=== PATIENT | male | born 1970 | race Hispanic/Latino ===

== ENCOUNTER 2018-04-18 16:47 | Emergency (ER) | payer SELFPAY ==
--- NOTE | 2018-04-18 18:26 | ED PDOC ---
Arrival/HPI - General Chief Complaint: Abnormal Skin Integrity Time Seen by Provider: 04/18/18 16:53 Historian: Patient - History of Present Illness Narrative History of Present Illness (Text): 04/18/18 18:30 47yr old male presents today with concerns for tick bite. Patient states he was walking underneath a tree earlier today and then later noticed that he had a lump underneath the right arm and he thought it was a tick. Patient states he's had many ticks on the skin in the past when he was a child and he was concerned that it may be it sick patient presents to the emergency room to be evaluated for possible tick bite since he is unable to visualize what he is feeling under the right axilla. Patient denies pain denies fevers or chills. No other complaints Time/Duration: Prior to Arrival Symptom Course: Unchanged Past Medical History - Provider Review Nursing Documentation Reviewed: Yes - Travel History Have you recently traveled outside [place] w/in the past 3 mons?: No - Tetanus Immunization Tetanus Immunization: Unknown - Psychiatric Hx Substance Use: No Family/Social History - Physician Review Nursing Documentation Reviewed: Yes Family/Social History: Unknown Family HX Smoking Status: Never Smoked Hx Alcohol Use: Yes Frequency of alcohol use: Socially Hx Substance Use: No Allergies/Home Meds Allergies/Adverse Reactions: Allergies No Known Allergies Allergy (Verified 04/18/18 18:16) Home Medications: Home Meds Medication Instructions Recorded Confirmed No Known Home Med 04/18/18 04/18/18 Review of Systems - Review of Systems Constitutional: absent: Fatigue, Fevers Respiratory: absent: SOB, Cough Cardiovascular: absent: Chest Pain, Palpitations Gastrointestinal: absent: Abdominal Pain, Vomiting Musculoskeletal: absent: Arthralgias Skin: Skin Lesions Neurological: absent: Headache Physical Exam Vital Signs Reviewed: Yes Temperature: Afebrile Blood Pressure: Normal Pulse: Regular Respiratory Rate: Normal Appearance: Positive for: Well-Appearing, Non-Toxic, Comfortable Pain Distress: None Mental Status: Positive for: Alert and Oriented X 3 - Systems Exam Head: Present: Atraumatic Respiratory/Chest: Present: Clear to Auscultation Cardiovascular: Present: Regular Rate and Rhythm Neurological: Present: GCS=15, Speech Normal Skin: Present: Warm, Dry, Normal Color, Other (along the lateral chest wall at the axilla there is a skin colored pedunculated lesion noted. no surrounding erythema; no edema. ) Psychiatric: Present: Alert, Oriented x 3 Medical Decision Making ED Course and Treatment: 04/18/18 18:33 pt is non toxic well appearing no distress. presents with concerns for possible tick attached to skin. pt was found to have a skin tag at the area that he was worried about an attached tick. pt was seen and evaluated by dr. wilburn. will d/c home to f/u with pmd. i discussed skin tags with patient; advised that he can have the surgically removed for cosmetic purposes. Patient verbalizes understanding of discharge instructions and need for immediate followup. all aspects of this case were discussed the attending of record. Impression: Skin tag follow up with the primary care physician within the next 2 days return if symptoms worsen, persist or if new symptoms develop. Disposition/Present on Arrival - Present on Arrival Any Indicators Present on Arrival: No History of DVT/PE: No History of Uncontrolled Diabetes: No Urinary Catheter: No History of Decub. Ulcer: No History Surgical Site Infection Following: None - Disposition Have Diagnosis and Disposition been Completed?: Yes Diagnosis: Skin tag Disposition: HOME/ ROUTINE Disposition Time: 18:26 Patient Plan: Discharge Condition: GOOD Discharge Instructions (ExitCare): Skin Tags ([place]rochordon) Additional Instructions: follow up with the primary care physician within the next 2 days return if symptoms worsen, persist or if new symptoms develop. Referrals: Amandeep Leyva MD [Staff Provider] - Follow up with primary
[2018-04-18 18:36] VITALS: RESP 18; TEMP 98.2
[2018-04-18 18:41] VITALS: BP 129/79; PULSE 77; O2SAT 99
== END 2018-04-18 18:39 | disposition home or self-care (01) ==
LOC: ED 16:47
DX: L91.8 Other hypertrophic disorders of the skin (principal)